=== PATIENT | male | born 1960 | race Caucasian/White ===

== ENCOUNTER → 2018-05-26 | Outpatient (REF) | payer OTHER ==
[~2018-05-26] MED LIST: AMLODIPINE5 MG OR; AVAPRO OR; AVAPRO150 MG PO; AVAPRO300 MG OR; BABY ASPIRIN81 MG OR; DEPO-TESTOS100 MG/ML IM; DIOVAN HCT PO; LORTAB5 PO; MELOXICAM15 MG OR; MELOXICAM15 MG PO; METAXALONE PO; MOBIC7.5 MG OR; NADOLOL20 MG PO; NAPROXEN DR375 MG PO; OMEPRAZOLE20 MG PO; OXYCO/APAP1 TA5 PO; PERCOCET 10/31 COMBO PO; PERCOCET1 TA4 PO; VIAGRA50 MG PO; ZEGERID OTC PO
[2018-05-26 09:12] LABS: ALBUMIN 3.8 g/dL (3.2-5.0); BILIRUBIN, TOTAL 0.5 mg/dL (0.0-1.4); TOTAL PROTEIN 6.5 g/dL (6.3-8.2)
== END | disposition home or self-care (01) | DRG 642 ==
LOC: LAB 07:03
PROVIDERS: ATTEND Internal Medicine
DX: E83.119 Hemochromatosis, unspecified (principal)

== ENCOUNTER → 2018-11-09 | Outpatient (REF) | payer OTHER | END | disposition home or self-care (01) | DRG 392 | LOC: CT 13:46 | PROVIDERS: ATTEND Family Medicine | DX: R10.9 Unspecified abdominal pain (principal); M25.851 Other specified joint disorders, right hip ==

== ENCOUNTER 2018-12-24 13:55 | Day surgery (SDC) | payer OTHER ==
[~2018-12-24 13:55] MED LIST changes: +ALLOPURINOL100 MG PO; +CELEBREX200 M1 PO; +GREEN TEA; +MILK THISTL2 PO; +VITAMIN7 PO
[2018-12-24] MEDS ORDERED: HYDROCODONE/ACE1 TAB PO (16:20)
[2018-12-24 16:29] VITALS: BP 128/60
== END 2018-12-24 16:50 | disposition home or self-care (01) | DRG 514 ==
LOC: ORM 13:55
PROVIDERS: ATTEND Orthopaedic Surgery
PROC: 0LN80ZZ Release Left Hand Tendon, Open Approach (ICD-10-PCS; principal; 2018-12-24)
DX: M65.342 Trigger finger, left ring finger (principal); I10 Essential (primary) hypertension

== ENCOUNTER 2020-07-23 17:15 | Emergency (ER) | payer BC ==
[~2020-07-23] VITALS: Ht 160 cm; Wt 86.0 kg
[~2020-07-23 17:15] MED LIST changes: +HYDROCODONE/ACE1 TAB PO
[2020-07-23] MEDS ORDERED: PREDNISONE50 MG PO (18:11)
[2020-07-23] MEDS ORDERED: EPIPEN 2-P0.3 MG/0.3 IM (18:11)
[2020-07-23 18:40] VITALS: BP 131/71
[2020-07-23] MEDS ORDERED: CEPHALEXIN500 M1 PO (18:46)
== END 2020-07-23 19:00 | disposition home or self-care (01) | DRG 916 ==
LOC: ED 17:15
DX: T78.40XA Allergy, unspecified, initial encounter (principal); L03.111 Cellulitis of right axilla; E11.9 Type 2 diabetes mellitus without complications; X58.XXXA Exposure to other specified factors, initial encounter

== ENCOUNTER 2023-08-12 07:09 | Emergency (ER) | payer BC ==
[~2023-08-12] VITALS: Ht 160 cm; Wt 91.0 kg
[~2023-08-12 07:09] MED LIST changes: +CEPHALEXIN500 M1 PO; +EPIPEN 2-P0.3 MG/0.3 IM; +PREDNISONE50 MG PO
[2023-08-12] MEDS ORDERED: HYDROCO/APAP1 TA9 PO ×3 (07:58→09:52)
[2023-08-12] MEDS ORDERED: NAPROXEN500 MG PO (09:02)
[2023-08-12 09:06] VITALS: BP 144/81
== END 2023-08-12 09:17 | disposition home or self-care (01) | DRG 556 ==
LOC: ED 07:09 → WW 07:34 → ED 07:34
DX: M25.512 Pain in left shoulder (principal); V86.59XA Driver of other special all-terrain or other off-road motor vehicle injured in nontraffic accident, initial encounter